=== PATIENT | female | born 1970 | race Caucasian/White ===

== ENCOUNTER → 2016-10-11 | Outpatient (CLI) | payer BC, OTHER ==
[2016-10-11 15:11] LABS: INFLUENZA B PCR Neg for Influ B (NEG)
[2016-10-11 15:16] LABS: INFLUENZA A PCR POS for Influ A (NEG)
== END | disposition home or self-care (01) ==
LOC: C.LABMFLN 10:19
PROVIDERS: ATTEND Family Medicine
DX: R68.89 Other general symptoms and signs (principal)

== ENCOUNTER → 2017-06-19 | Outpatient (CLI) | payer OTHER | END | disposition home or self-care (01) | LOC: C.PATHSPEC 13:13 | PROVIDERS: ATTEND Plastic Surgery | DX: C44.519 Basal cell carcinoma of skin of other part of trunk (principal); L57.0 Actinic keratosis ==

== ENCOUNTER → 2017-07-28 | Outpatient (CLI) | payer OTHER | END | disposition home or self-care (01) | LOC: C.PAPS 13:52 | PROVIDERS: ATTEND Family Medicine | DX: Z12.4 Encounter for screening for malignant neoplasm of cervix (principal); R87.610 Atypical squamous cells of undetermined significance on cytologic smear of cervix (ASC-US) ==

== ENCOUNTER → 2017-08-28 | Outpatient (CLI) | payer OTHER ==
[2017-08-28 13:08] LABS: BLOOD UREA NITROGEN 15 mg/dl (7-18); BUN/CREATININE RATIO 18.5 (10-20); CREATININE 0.79 mg/dl (0.60-1.20); ESTIMATED AVERAGE GLUCOSE 134 mg/dl; GLUCOSE 138 mg/dl (70-99); HA1C FLAG Normal (Normal); SODIUM 137 mmol/L (136-145)
[2017-08-28 13:09] LABS: ALT/SGPT 23 U/L (12-78); BASO % 0.2 %; BASO ABS # 0.01 K/uL (0-0.2); CALCIUM 8.5 mg/dl (8.5-10.1); CARBON DIOXIDE 26 mmol/L (21-32); CHLORIDE 104 mmol/L (98-107); CHOLESTEROL 164 mg/dl (0-200); COMPLETE YES; EOS % 3.9 %; IG% 0.2 %; LYMPH % 34.1 %; LYMPH ABS # 2.18 K/uL (1.2-3.4); MEAN CELL VOLUME 89.4 fL (80-100); MEAN CORPUSCULAR HEMOGLOBIN 29.7 pg (25-34); MEAN CORPUSCULAR HGB CONC 33.2 g/dl (32-36); MEAN PLATELET VOLUME 10.2 fL (7.4-10.4); MONO % 8.3 %; NEUT % 53.3 %; PLATELET COUNT 220 K/uL (130-400); POTASSIUM 3.9 mmol/L (3.5-5.1); RED BLOOD COUNT 4.92 M/uL (4.2-5.4); TRIGLYCERIDES 133 mg/dl (0-150); VERY LOW DENSITY LIPOPROT CALC 27 mg/dl; WHITE BLOOD COUNT 6.39 K/uL (4.8-10.8)
[2017-08-28 13:19] LABS: ALB/GLOB RATIO 1.3 (0.9-2); ALKALINE PHOSPHATASE 82 U/L (45-117); AST/SGOT 16 U/L (15-37); CHOLESTEROL/HDL RATIO 3.2; HDL CHOLESTEROL 51 mg/dl; LDL CHOLESTEROL CALCULATED 86 mg/dl
== END | disposition home or self-care (01) ==
LOC: C.LABMFLN 07:16
PROVIDERS: ATTEND Family Medicine
DX: F41.9 Anxiety disorder, unspecified (principal); E78.5 Hyperlipidemia, unspecified; R73.01 Impaired fasting glucose

== ENCOUNTER → 2017-12-10 | Outpatient (CLI) | payer OTHER | END | disposition home or self-care (01) | LOC: C.PATHSPEC 10:27 | PROVIDERS: ATTEND Plastic Surgery | DX: D22.71 Melanocytic nevi of right lower limb, including hip (principal) ==